=== PATIENT | male | born 1955 | race Caucasian/White ===

== ENCOUNTER 2023-07-04 07:11 | Emergency (ER) | payer MEDICARE, SELFPAY ==
[2023-07-04] VITALS (20 sets, daily range): BP systolic 95–158; BP diastolic 67–125; PULSE 64–79; RESP 11–22; TEMP 36.6; O2SAT 92–100
--- NOTE | ~2023-07-04 | XR_ITS ---
EXAMINATION: XR shoulder LT 1V DATE: 07/04/2023 08:55 INDICATION: Postreduction left shoulder dislocation TECHNIQUE: Frontal and transscapular Y views of the left shoulder were obtained. COMPARISON: None FINDINGS: Successful reduction of the previously dislocated left glenohumeral joint which is now in normal alig nment. No fracture.Moderate acromioclavicular osteoarthritis. Left lung is clear with no pleural eff usion or pneumothorax. Soft tissues are unremarkable. IMPRESSION: Successful reduction of the previously dislocated left glenohumeral joint which is now in normal alig nment. No fracture. Reviewed, dictated and finalized at location A. IMPRESSION: Successful reduction of the previously dislocated left glenohumeral joint which is now in normal alignment. No fracture.
--- NOTE | ~2023-07-04 | XR_ITS ---
Left Shoulder Technique: Single AP view of obtained. Clinical History: Dislocation Findings: There is dislocation of the humeral head, probably anteroinferior, less likely direct infer ior. There is a probable Hill-Sachs impaction deformity of the superior femoral head. No definite gle noid fracture seen. Soft tissues are unremarkable. Impression: Dislocation of the humeral head, likely anteroinferior, less likely inferior. Probable Hill-Sachs impaction fracture of the superior humeral head. Reviewed, dictated and finalized at location . Impression: Dislocation of the humeral head, likely anteroinferior, less likely inferior. Probable Hill-Sachs impaction fracture of the superior humeral head.
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
[2023-07-04] MEDS: fentaNYL CITRATE INJ (*CRX) 100 MCG/2 ML VIAL 25 MCG IV PUSH ×2 (07:28→07:39)
[2023-07-04] MEDS: ETOMIDATE 20 MG/10 ML AMPUL 10 MG IV PUSH (07:51)
--- NOTE | 2023-07-04 08:11 | PC.NURSE ---
Positive PMS post procedure. Patient awake and talking. VSS.
--- NOTE | 2023-07-04 09:43 | PC.NURSE ---
patient ambulatory with steady gait, at bedside. Shoulder immobilizer adjusted for comfort.
== END 2023-07-04 09:40 | disposition home or self-care (01) ==
PROVIDERS: Emergency Provider Internal Medicine Critical Care Medicine; PCP Internal Medicine
DX: S43.005A Unspecified dislocation of left shoulder joint, initial encounter (principal); J44.9 Chronic obstructive pulmonary disease, unspecified; Z79.899 Other long term (current) drug therapy; W22.8XXA Striking against or struck by other objects, initial encounter; Y92.009 Unspecified place in unspecified non-institutional (private) residence as the place of occurrence of the external cause
CPT/HCPCS: 23650; 73020; 73030; 96374; 99285; J3010; L3670

== ENCOUNTER → 2023-09-06 07:59 | Outpatient (CLI) | payer MEDICARE, SELFPAY ==
--- NOTE | ~2023-09-06 | MR_ITS ---
EXAMINATION: MR shoulder LT wo con DATE: 09/06/2023 09:26 INDICATION: Anterior shoulder dislocation TECHNIQUE: Magnetic resonance imaging (MRI) of the left shoulder was performed without intravenous co ntrast. Sequences included axial PD-weighted FS FSE, coronal oblique PD-weighted FS FSE, coronal obli que T2-weighted FS FSE, sagittal PD-weighted FS FSE, and sagittal T1-weighted SE. COMPARISON: None. FINDINGS: Coracoacromial arch: The acromion undersurface is curved in morphology (type II). The coracoacromial ligament is normal. M ild acromioclavicular osteoarthritis. Rotator cuff: Large full-thickness tear involving the entire greater tuberosity insertion of the supraspinatus and infraspinatus tendons and the entire lesser tuberosity insertion of the subscapularis tendon. This is likely chronic given the medial retraction and moderate to severe associated fatty atrophy of the as sociated muscle bellies. The tear margin is retracted up to 7-8 cm medial from the greater tuberosity footplate, extending across the medial margin of the coracoid process in the neck of the more umbrella tipper machine ior glenoid. The teres minor tendon is normal. Biceps tendon, glenoid labrum and glenohumeral cartilage: Complete tear of the long head biceps tendon with the attenuated distal tear margin retracted to the level of the intertubercular groove. Small region of degenerative tearing at the 12:00 position of th e glenoid labrum. The remainder of the labrum appears relatively preserved. Glenohumeral cartilage th ere are some labral preserved. Fluid: Small glenohumeral joint effusion which communicates with the subacromial/subdeltoid bursa throughout the full-thickness rotator cuff tear. No loose osteochondral bodies. Bones: There is cephalad subluxation of the humeral head with respect to the glenoid resulting from a full-t hickness rotator cuff tear with secondary narrowing of the subacromial space. Moderate cystic change at the superior facet of the greater tuberosity likely related to chronic rotator cuff disease. IMPRESSION: 1. Massive full-thickness rotator cuff tear along the humeral insertion of the subscapularis, suprasp inatus and infraspinatus tendons with prominent medial retraction of the tear margin and moderate to severe secondary fatty atrophy of the muscle belly suggesting this is chronic. 2. Degenerative tearing at the superior glenoid labrum with avulsion and distal retraction of the shay g head biceps tendon. 3. Mild acromioclavicular osteoarthritis. Reviewed, dictated and finalized at location A. IMPRESSION: 1. Massive full-thickness rotator cuff tear along the humeral insertion of the subscapularis, supraspinatus and infraspinatus tendons with prominent medial re traction of the tear margin and moderate to severe secondary fatty atrophy of t he muscle belly suggesting this is chronic. 2. Degenerative tearing at the superior glenoid labrum with avulsion and distal retraction of the long head biceps tendon. 3. Mild acromioclavicular osteoarthritis.
== END ==
PROVIDERS: PCP Internal Medicine
DX: S43.015A Anterior dislocation of left humerus, initial encounter (principal); S46.012A Strain of muscle(s) and tendon(s) of the rotator cuff of left shoulder, initial encounter; X58.XXXA Exposure to other specified factors, initial encounter; M19.012 Primary osteoarthritis, left shoulder
CPT/HCPCS: 73221

== ENCOUNTER 2024-05-20 08:00 | Outpatient (RCR) | payer MEDICARE, SELFPAY ==
--- NOTE | 2024-04-24 14:32 | OTOPEVAL1 ---
Assessment and note entered by Neftali Hunter, DEBBIER/Ronen, CHT Evaluation Information Assessment Status Evaluation Diagnosis Left axillary nerve palsy Subjective Information -Injury 07/04/23 -Surgery 01/23/24 -Patient is s/p decompression of the left quadrangular space with tenotomy of the long head of the triceps tendon, decompression and neurolysis of the left axially nerve, and nerve transfer using the medial triceps nerve end-to- side to the axillary nerve. -Patient reports continued difficulty raising the left shoulder. States no pain. Reports that recently it feels like his hand is cramping and this typically occurs at night. -Has HEP from [facility], but has been having a hard time completing this on his own he reports -Unable to do any sort of lifting away from his body with the left arm, limited with use of tools, and difficulties with heavy household tasks Reported Pain Level Pain Score 0: Self Report Assessment OT Clinical Summary Patient referred to OT with dx of left axillary nerve palsy s/p decompression of the quadrangular space and axillary nerve transfer using the medial triceps nerve. He presents with limited shoulder flexion, abduction, and external rotation strength . Issued HEP and he completes with constant cues to isolate the deltoid as he tends to compensate with larger, stronger muscles. Continued skilled OT indicated to maximize functional strength, body mechanics, and functional use of the left UE. Plan of Care Interventions Therapeutic Exercise,Manual Therapy,Neuro Re- education,Therapeutic Activities OT Services Indicated Yes Treatment Frequency and 1x/week for 5 visits Duration These treatments will address the objective and functional deficits as defined above. The patient will be advanced safely and appropriately in order for the patient to progress towards his/her prior level of function. Additional exercises will be introduced and as well as a comprehensive home exercise program upon discharge, if needed, ?to ensure carryover of functional gains achieved in the clinic. This treatment plan has been reviewed and agreement upon by the patient.
--- NOTE | 2024-04-24 14:32 | OPREHPOC ---
Outpatient Therapy Plan of Care This is a Multidisciplinary Plan of Care that may contain components documented by all disciplines (PT, OT, and ST.) OT Problem 1 OT Problem #1 Knowledge Deficit OT Goal 1 Goal 1. Patient to be independent with instructed materials. Target Visit 5 OT Problem 2 OT Problem #2 Impaired Strength OT Goal 1 Goal Increase functional strength of the left shoulder as demonstrated by improving functional ROM against gravity to: 1. Left shoulder flexion to 50* 2. Left shoulder abduction to 50* Increase functional strength of the left hand: 1. construction engineer strength to 80 lbs. Target Visit 5
--- NOTE | 2024-05-13 08:04 | PCOTNOTE ---
Patient called & cancelled scheduled appointment this date due to illness.
--- NOTE | 2024-05-20 08:29 | OTOPPROG ---
Assessment and note entered by Neftali Hunter, DOMINIC/Ronen, [place] OT Progress Update 05/20/24 Assessment Status Progress Diagnosis Left axillary nerve palsy Subjective Information Patient has been participating in OT x4 weeks. He reports he feels like his shoulder motion is better and he is feeling stronger. States he is feeling like his arm is getting more functional with household tasks, working out in the garden, etc. Reporting no pain. States his hand hasn't been cramping lately. Shoulder flexion and abduction remained limited at 30 degrees. No change. Shoulder extension remained WNL at 60 degrees. Shoulder ER continues to be very limited and weak, 2/5 Shoulder IR is WNL. Assessment OT Clinical Summary Patient referred to OT with dx of left axillary nerve palsy s/p decompression of the quadrangular space and axillary nerve transfer using the medial triceps nerve. He has been very motivated and compliant with therapy. Unfortunately the shoulder ROM and strength continues to measure the same as the initial evaluation. He continues to compensate for lack of deltoid strength. Plan to have patient continue to work on his HEP x1 month and follow up for a re-assessment to hopefully progress his HEP. Plan of Care Interventions Therapeutic Exercise,Manual Therapy,Neuro Re- education,Therapeutic Activities OT Services Indicated Yes Treatment Frequency and Follow up in 1 month Duration These treatments will address the objective and functional deficits as defined above. The patient will be advanced safely and appropriately in order for the patient to progress towards his/her prior level of function. Additional exercises will be introduced and as well as a comprehensive home exercise program upon discharge, if needed, ?to ensure carryover of functional gains achieved in the clinic. This treatment plan has been reviewed and agreement upon by the patient.
--- NOTE | 2024-06-17 08:18 | PCOTNOTE ---
Patient called & cancelled scheduled appointment this date due to illness.
--- NOTE | 2024-07-08 11:33 | OTOPDC ---
Assessment and note entered by Neftali Hunter, OTR/Ronen, CHT OT Discharge Notification 07/08/24 OT Clinical Summary Patient referred to OT with dx of left axillary nerve palsy s/p decompression of the quadrangular space and axillary nerve transfer using the medial triceps nerve. He was seen for 4 OT sessions. He called to cancel his re-evaluation and did not reschedule. We have been unable to get a hold of him. Discharging OT at this time. Please refer to OT note, dated 05/20/24, for most recent summary and progress update. Thank you for this referral.
== END 2024-07-08 14:32 | disposition home or self-care (01) ==
LOC: ANHOT 08:00
PROVIDERS: PCP Internal Medicine
DX: G54.0 Brachial plexus disorders (principal)
CPT/HCPCS: 97110; 97140; 97166

== ENCOUNTER 2024-09-08 08:00 | Outpatient (RCR) | payer MEDICARE, SELFPAY ==
--- NOTE | 2024-08-04 08:52 | OTOPEVAL1 ---
Assessment and note entered by Neftali Hunter, DOMINIC/Ronen, CHT Evaluation Information Assessment Status Evaluation Diagnosis Left axillary nerve palsy Subjective Information -Injury 07/04/23 -Surgery 01/23/24 -Patient is s/p decompression of the left quadrangular space with tenotomy of the long head of the triceps tendon, decompression and neurolysis of the left axially nerve, and nerve transfer using the medial triceps nerve end-to- side to the axillary nerve. -Patient reports continued difficulty raising the left shoulder. States no pain. -Has been compliant with HEP: Pulleys, AAROM with cane, and shoulder ROM prone off edge of bed -Unable to do any sort of lifting away from his body with the left arm, limited with use of tools, and difficulties with household tasks Reported Pain Level Pain Score 0: Self Report Assessment OT Clinical Summary Patient referred to OT with a decline in left UE use following a shoulder dislocation injury with axially nerve palsy. He underwent a nerve transfer procedure - medial triceps nerve to axillary ~6 months ago. He completed a month of OT at this clinic from April-May of this year. Measurements today show progress from this summer. He has been compliant with his HEP. Added some new exercises to his HEP and he demonstrates excellent understanding. Patient to continue his HEP and follow up in a month for reassessment of his progress and potential HEP progression. Plan of Care Interventions Therapeutic Exercise,Manual Therapy,Therapeutic Activities OT Services Indicated Yes Treatment Frequency and Follow up in 1 month. Duration These treatments will address the objective and functional deficits as defined above. The patient will be advanced safely and appropriately in order for the patient to progress towards his/her prior level of function. Additional exercises will be introduced and as well as a comprehensive home exercise program upon discharge, if needed, ?to ensure carryover of functional gains achieved in the clinic. This treatment plan has been reviewed and agreement upon by the patient.
--- NOTE | 2024-08-04 08:52 | OPREHPOC ---
Outpatient Therapy Plan of Care This is a Multidisciplinary Plan of Care that may contain components documented by all disciplines (PT, OT, and ST.) OT Problem 1 OT Problem #1 Knowledge Deficit OT Goal 1 Goal / Goal Update Patient to be independent with instructed materials. Target Visit 2 OT Problem 2 OT Problem #2 Impaired Strength OT Goal 1 Goal / Goal Update Improve functional strength of the left shoulder as demonstrated by: - improving shoulder flexion in a standing position from 40 to 90 degrees to be able to reach counter-height objects during ADLs - improving shoulder abduction in a standing position from 40 to 90 degrees to be able to complete lateral reaching during ADLs and home projects - improving shoulder external rotation strength to 4/5 to improve functional self care tasks such as grooming, washing hair, etc. Target Visit 2
--- NOTE | 2024-09-08 09:24 | OTOPPROG ---
Assessment and note entered by Neftali Hunter, DOMINIC/Ronen, CHT OT Progress Update 09/08/24 Diagnosis Left axillary nerve palsy Subjective Information -Injury 07/04/23 -Surgery 01/23/24 -Patient is s/p decompression of the left quadrangular space with tenotomy of the long head of the triceps tendon, decompression and neurolysis of the left axially nerve, and nerve transfer using the medial triceps nerve end-to- side to the axillary nerve. -Patient reports continued difficulty raising the left shoulder, but that it is feeling better. -No pain. -Has been compliant with HEP: shoulder motion in supine and prone, triceps strengthening, pulleys for flexibility -During ADLs, he continues to be unable to do any sort of lifting away from his body with the left arm, difficulties with household tasks Since last assessment (08/04/24): - shoulder flexion in standing improved from 40 to 50 degrees - shoulder abduction in standing remained unchanged at 40 degrees - shoulder abduction in supine remained unchanged at 80 degrees - shoulder extension in standing remained WFL at 60 degrees HEP was progressed today: - prone shoulder flexion, extension, and abduction with a 1 lb. free weight - shoulder flexion and abduction isometrics in doorway, able to isolate the deltoid well without upper trap compensation - sideling external rotation with 1 lb. free weight Assessment OT Clinical Summary Patient referred to OT with a decline in left UE use following a shoulder dislocation injury with axially nerve palsy. He underwent a nerve transfer procedure - medial triceps nerve to axillary ~7 months ago. Patient has made progress with improved ROM and improved strength as demonstrated by being able to progress his HEP in all planes today. He was also able to complete isometric shoulder flexion and abduction today without heavily compensating with the upper traps. Reviewed all exercises today, provided feedback/ cues on form, and patient demonstrates good understanding. Patient to continue his HEP and follow up in a month for reassessment of his progress and potential HEP progression. Plan of Care Interventions Therapeutic Exercise,Manual Therapy,Therapeutic Activities OT Services Indicated Yes Treatment Frequency and Follow up in 1 month. Duration These treatments will address the objective and functional deficits as defined above. The patient will be advanced safely and appropriately in order for the patient to progress towards his/her prior level of function. Additional exercises will be introduced and as well as a comprehensive home exercise program upon discharge, if needed, ?to ensure carryover of functional gains achieved in the clinic. This treatment plan has been reviewed and agreement upon by the patient.
--- NOTE | 2024-09-08 09:25 | OPREHPOC ---
Outpatient Therapy Plan of Care This is a Multidisciplinary Plan of Care that may contain components documented by all disciplines (PT, OT, and ST.) OT Problem 1 OT Problem #1 Knowledge Deficit OT Goal 1 Goal / Goal Update Patient to be independent with instructed materials. ---OT POC UPDATE 09/08/24--- Met, continue as HEP is progressed Target Visit 3 OT Problem 2 OT Problem #2 Impaired Strength OT Goal 1 Goal / Goal Update Improve functional strength of the left shoulder as demonstrated by: - improving shoulder flexion in a standing position from 40 to 90 degrees to be able to reach counter-height objects during ADLs - improving shoulder abduction in a standing position from 40 to 90 degrees to be able to complete lateral reaching during ADLs and home projects - improving shoulder external rotation strength to 4/5 to improve functional self care tasks such as grooming, washing hair, etc. ---OT POC UPDATE 09/08/24--- - shoulder flexion improved from 40 to 50, continue - shoulder abduction demonstrates no change at this time, monitor goal - shoulder external rotation improved to 3+/5, upgraded HEP to reflect this progress Target Visit 3
== END 2024-11-02 23:59 | disposition home or self-care (01) ==
LOC: ANHOT 08:00
PROVIDERS: PCP Internal Medicine
DX: S44.32XA Injury of axillary nerve, left arm, initial encounter (principal)
CPT/HCPCS: 97110; 97112; 97165

== ENCOUNTER 2025-02-05 11:18 | Outpatient (CLI) | payer MEDICARE, SELFPAY ==
[2025-02-05 11:35] LABS: Basophils Absolute Auto 0.05 K/mm3 (0.00-0.10); Basophils Percent Auto 0.8 % (0.0-1.0); Eosinophils Absolute Auto 0.26 K/mm3 (0.02-0.50); Eosinophils Percent Auto 4.3 % (1.0-6.0); Hematocrit 43.4 % (37.0-46.0); Immature Granulocyte Absolute 0.02 K/mm3 (0.00-0.00); Immature Granulocyte Percent A 0.3 % (0.0-0.0); Lymphocytes Absolute Auto 1.43 K/mm3 (1.10-4.50); Lymphocytes Percent Auto 23.5 % (18.0-42.0); Mean Corpuscular HGB Conc 32.3 g/dL (32-36); Mean Corpuscular Volume 99.1 fL (78.0-102.0); Mean Platelet Volume 8.7 fl (8.7-11.0); Monocytes Absolute Auto 0.41 K/mm3 (0.10-0.90); Monocytes Percent Auto 6.7 % (2.0-11.0); Neutrophils Absolute Auto 3.92 K/mm3 (1.70-7.20); Neutrophils Percent Auto 64.4 % (50.0-70.0); Platelet Count Result 298 K/mm3 (150-420); Red Blood Count 4.38 M/mm3 (4.70-6.10); Red Cell Distribution Width 13.3 % (11.6-14.4); White Blood Count 6.1 K/mm3 (4.8-10.8)
--- OUTSIDE RECORDS SUMMARY | 2025-02-05 12:12 | XMS_ITS | Encounter Summary ---
Author Organization [facility] Address [address] [place] [address] Phone Care Team Providers Care [employer] Guidance Counselor Name Role Phone Hunter Perez MD Primary Care Provider [phone] Kendra Garvin MD Unavailable Jackie QUINONES MD, Han Regan. Unavailable [phone] Ralf Espinoza MD Unavailable [phone] Reason for Visit * Reason Comments Medication Refill Encounter Details Date Type Department Care Team (Late st Contact Info) Description 04/25/2024 Refill [facility] - Family [facility] [address] [place] [id number] Hunter Perez MD [address] [place] [address] Medication Refill Social History Tobacco Use Types Packs/Day Years Used Date Smoking Tobacco: Former Cigarettes 1 52.6 0 06/22/1970 - 01/10/2023 Pipe Smokeless Tobacco: Never Alcohol Use Standard Drinks/Week Comments Yes 0 (1 standard drink = 0.6 oz pur e alcohol) social drinker PHQ-2 Answer Date Recorded Total Score - Questions 1-9 0 08/06 Education Answer Date Recorded What is the highest level of school you have completed or the highest degree you have received? 12th grade 07/22/2023 Sex and Gender Information Value Date Recorded Sex Assigned at Not on file Legal Sex Male 12:38 AM CDT Gender Identity Not on file Sexual Orientation Not on file documented as of this encounter Miscellaneous Notes * Telephone Encounter - Sonu Camara RN - 04/25/2024 8:28 AM CDT Refill requested too soon. documented in this encounter Plan of Treatment Upcoming Encounters Date Type Department Care Team (Late st Contact Info) Description 03/10/2025 8:00 AM CDT Office Visit [facility] - [place] [address] [place] [id number] Hunter Perez MD [address] [place] [address] documented as of this encounter Visit Diagnoses Not on filedocumented in this encounter Additional Health Concerns Assessment Noted Time PHQ-9 Depression Total Score: 0 08/31/20 23 11:16 AM CDT documented as of this encounter Care Teams [employer] Guid[employer] Counsel[employer] Relationship Specialty Start Date End Date Hunter Perez MD [address] [place] [address] PCP - General Internal Medicine 07/27/15 Kendra Garvin MD [address] [place] [address] Consulting Physician Pain Medicine-Pain Management 06/22/16 [place] [address] [address] Consulting Physician Neurology 06/22/16 Ralf Espinoza MD [address] [id number] Consulting Physician Rheumatology 06/22/16 documented as of this encounter
--- OUTSIDE RECORDS SUMMARY | 2025-02-05 12:12 | XMS_ITS | Encounter Summary ---
Author Organization [facility] Address [address] [place] [address] Phone Care Team Providers Care Occup Therapist Name Role Phone Hunter Perez MD Primary Care Provider [phone] Kendra Garvin MD Unavailable Jackie QUINONES MD, Han Regan. Unavailable Ralf Espinoza MD Unavailable [phone] Reason for Visit * Reason Comments Medication Refill Encounter Details Date Type Department Care Team (Late st Contact Info) Description 05/23/2022 Refill [facility] - Primary Care - [place] [address] [place] [address] Hunter Perez MD [address] [place], [place] [id number] Medication Refill Social History Tobacco Use Types Packs/Day Years Used Date Smoking Tobacco: Some Days Cigarettes 1 54.6 Started: 06/22/1970 Pipe Smokeless Tobacco: Never Alcohol Use Standard Drinks/Week Comments Yes 0 (1 standard drink = 0.6 oz pur e alcohol) social drinker PHQ-2 Answer Date Recorded Total Score - Questions 1-9 0 07/07 Sex and Gender Information Value Date Recorded Sex Assigned at Not on file Legal Sex Male 12:38 AM CDT Gender Identity Not on file Sexual Orientation Not on file documented as of this encounter Miscellaneous Notes * Telephone Encounter - Zara Campuzano RN - 05/23/2022 10:11 AM CDT Medication approved and signed per standing order protocol. documented in this encounter Plan of Treatment Upcoming Encounters Date Type Department Care Team (Late st Contact Info) Description 03/10/2025 8:00 AM CDT Office Visit [facility] - Primary Care - [place] [address] [place] [address] Hunter Perez MD [address] [place] [address] documented as of this encounter Visit Diagnoses Not on filedocumented in this encounter Additional Health Concerns Assessment Noted Time PHQ-9 Depression Total Score: 0 07/28/20 21 8:00 AM CDT documented as of this encounter Care Teams Occup Therapist Relationship Specialty Start Date End Date Hunter Perez MD [address] [place] [address] PCP - General Internal Medicine 07/27/15 Kendra Garvin MD [address] [place] [address] Consulting Physician Pain Medicine-Pain Management 06/22/16 [place] [address] [address] Consulting Physician Neurology 06/22/16 [place] [address] [place] [address] Consulting Physician Rheumatology 06/22/16 documented as of this encounter
--- OUTSIDE RECORDS SUMMARY | 2025-02-05 12:12 | XMS_ITS | Continuity of Care Document ---
Author Organization [facility] Address [address] [place] [address] [place] [address] Phone Care Team Providers Care Slubber Operator Name Role Phone Rogerio Hinojosa DO Unavailable Unavailable Advance Directives Directive Yes / No Effective Date File Name No Information Encounters Encounter Description Practice Location Reason(s) For Visit Diagnoses Date Provider Providers Copied on Encounter [facility], [address], [place], [place], [id number], [place] tel:[phone] [facility] No Information Micaela Wright. [address] [place], [address], [place]. tel:[phone] Family History Family Member Type Diagnosis Age At Onset No Information Payers Payer name Insurance type Covered alliance party ID Authoriza tion(s) No Information Social History Type Description Quantity Date Captured Comments Sex Male Smoking Status No Information Chief Complaint And Reason For Visit No Information Reason For Referral Reason For Referral No Information History Of Present Illness Encounter Date Complaint History Of Prese nt Illness No Information Functional Status Date Functional Assessmen t No Information Instructions Date Instruction Additional Infor mation No Information Assessments Type Assessment Date No Information Patient Care Teams Name Effective Dates (start - stop) Status Members No Information
--- OUTSIDE RECORDS SUMMARY | 2025-02-05 12:12 | XMS_ITS | Clinical Summary ---
Author Organization [facility] Address [address] [place] [address] Care Team Providers Care Ship'S Officer Name Role Phone Hunter Perez MD Primary Care Provider + Bon Hannah Unavailable Allergies No known active allergies Medications methadone (DOLOPHINE) 10 mg tablet Take 0.5 tablets by mouth every 8 (eight) hours as needed for pain 5 Active morphine ER (MS CONTIN) 30 mg 12 hr tabletIndication s:severe chronic pain requiring long-term opioid treatment Take 1 tablet (30 mg total) by mouth 2 (two) times a day Active omeprazole (PriLOSEC) 20 mg capsuleIndicatio ns:Treatment of Non-Bleeding Gastric Disorder Take 1 capsule (20 mg total) by mouth every morning 3 Active potassium gluconate 2.5 mEq tabletIndication s:hypokalemia prevention Take 2.5 mEq by mouth every morning Active atorvastatin (LIPITOR) 10 mg tabletIndication s:hyperlipidemia Take 1 tablet (10 mg total) by mouth nightly 4 Active albuterol HFA (ProAir HFA) 90 mcg/actuation inhalerIndicatio ns:Chronic Obstructive Pulmonary Disease Inhale 2 puffs every 4 (four) hours as needed for shortness of breath 9 Active budesonide-formo teroL (Symbicort) 160-4.5 mcg/actuation inhalerIndicatio ns:Bronchospasm Prevention with COPD Inhale 2 puffs 2 (two) times a day 9 Active buPROPion SR (WELLBUTRIN SR) 150 mg 12 hr tabletIndication s:unknown Take 1 tablet (150 mg total) by mouth 2 (two) times a day 9 Active gabapentin (NEURONTIN) 300 mg capsuleIndicatio ns:Neuropathic Pain Take 2 capsules (600 mg total) by mouth 2 (two) times a day 5 Active melatonin 10 mg tabletIndication s:sleep Take 1 tablet (10 mg total) by mouth nightly Active predniSONE (DELTASONE) 5 mg tabletIndication s:Anti-inflammat ory Take 1 tablet (5 mg) by mouth daily as needed 4 Active cyanocobalamin (Vitamin B-12) 1,000 mcg tabletIndication s:Prevention of Vitamin B12 Deficiency Take 1 tablet (1,000 mcg total) by mouth every morning Active multivitamin tabletIndication s:Vitamin Deficiency Prevention Take 1 tablet by mouth every morning Active ginkgo/choline bitartrate (BRAINSTRONG MEMORY SUPPORT ORAL)Indications :supplement Take 1 tablet by mouth every morning Active cyclobenzaprine (FLEXERIL) 10 mg tabletIndication s:Muscle Spasm Take 1 tablet (10 mg total) by mouth every 8 (eight) hours as needed for muscle spasms 30 tablet 4 Active Additional Information Patient not taking.Reported on 02/25/2024 Active Problems Problem Noted Date Diagnosed Date Shoulder weakness 01/07/2024 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 Surgical History Surgery Date Site/Laterality Comments SHOULDER SURGERY 11/05/1970 - 11/04/1971 Right COLONOSCOPY 11/05/2016 - 11/04/2017 ESOPHAGOGASTRODUODENOSCOPY 02/04/2019 Medical History Medical History Date Comments HLD (hyperlipidemia) Seasonal allergies COPD (chronic obstructive pulmonary disease) (HC C) Colitis Arthritis Sleep apnea Family History Medical History Relation Name Comments Heart attack Brother Heart attack Father Stroke Mother Anesthesia problems Neg Hx Malig Hyperthermia Neg Hx Pseudochol deficiency Neg Hx Relation Name Status Comments Brother Father Mother Social History Tobacco Use Types Packs/Day Years Used Date Smoking Tobacco: Former Cigarettes 1 15 0 01/11/2008 - 01/10/2023 Smokeless Tobacco: Never Tobacco Cessation:Counseling Given: Not Answered AUDIT-C Answer Date Recorded Q1: How often do you have a drink containing alc ohol? 2-3 times a week 01/23/2024 Q2: How many drinks containi ng alcohol do you have on a typical day when you are drinking? 5 or 6 01/23/2024 Q3: How often do you have si x or more drinks on one occasion? Never 01/23/2024 Personal Safety Answer Date Recorded Have you ever been in or are you currently in a harmful physical or emotional relationship or is someone making you feel afraid or unsafe? 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 Gender Identity Not on file Sexual Orientation Not on file Obstetrics History Last Filed Vital Signs Vital Sign Reading Time Taken Comments Blood Pressure 107/64 01/24/2024 7:02 AM CDT Pulse 67 01/24/2024 7:02 AM CDT Temperature 36.6 C (97.9 F) 01/24/2024 7:02 AM CDT Respiratory Rate 16 01/24/2024 7:02 AM CDT Oxygen Saturation 97% 01/24/2024 7:50 AM CDT Inhaled Oxygen Concentration - - Weight 77.1 kg (170 lb) 01/23/2024 3:25 PM CDT Height 170.2 cm (5' 7.01 ) 01/23/2024 3:25 PM CD T Body Mass Index 26.62 01/23/2024 3:25 PM CDT Plan of Treatment Health Maintenance Due Date Last Done Comments Colon Cancer Screening-Colonoscopy 1955 Depression Screening 1955 Hepatitis C Screening 1955 Prostate Cancer Screening-PSA 1955 Hepatitis B Screening 1973 Zoster Vaccine (1 of 2) 2005 Abdominal Aortic Aneurysm (A AA) Screen 2020 01/31/2019, 02/14/2017 Well Visit 65+ 2020 Covid-19 Vaccine (2023-2 5 season) 2024 05/24/2022, 10/06/2021, 01/26/2021, Additional history exists Influenza Vaccine (#1) 2024 3, 08/07/2022, 07/28/2021, Additional history exists Fall Risk Assessment 01/23/2025 01/24/2024 DTaP/Tdap/Td Vaccine (3 - Td or Tdap) 06/22/2026 06/22/2016, 11/05/2005 Pneumococcal vaccine 65+ Completed 08/07/2022, 12/07 Insurance [employer] MEDICARE GOLD A[employer] MEDICARE GOLD Advance Directives For more information, please contact: [phone] * Full Code (Latest Code Status on File) Date Activated Date Inactivated Comments 01/23/2024 1:46 PM 01/24/2024 4:35 PM Care Teams Ship'S Officer Relationship Specialty Start Date End Date Hunter Perez MD PCP - General Internal Medicine 02/12/20 Bon Hannah PA [address] [facility] [facility] [address] [place] [address] Referring Physician Orthopedic Surgery 06/27/24
--- OUTSIDE RECORDS SUMMARY | 2025-02-05 12:12 | XMS_ITS | Encounter Summary ---
Author Organization [facility] Address [address] [facility] [place] [address] Phone Care Team Providers Care Accounting Specialist Name Role Phone Hunter Perez MD Primary Care Provider [phone] Kendra Garvin MD Unavailable [phone] Jackie QUINONES MD, Robert. Unavailable Ralf Espinoza MD Unavailable Reason for Visit * Reason Comments Medication Refill Encounter Details Date Type Department Care Team (Late st Contact Info) Description 03/28/2021 Refill [facility] [address] [place] [address] Hunter Perez MD [address] [place] [address] Medication Refill Social History Tobacco Use Types Packs/Day Years Used Date Smoking Tobacco: Some Days Cigarettes 1 54.6 Started: 06/22/1970 Pipe Smokeless Tobacco: Never Alcohol Use Standard Drinks/Week Comments Yes 0 (1 standard drink = 0.6 oz pur e alcohol) social drinker PHQ-2 Answer Date Recorded PHQ-2 Score 12 07/09/2019 Sex and Gender Information Value Date Recorded Sex Assigned at Not on file Legal Sex Male 12:38 AM CDT Gender Identity Not on file Sexual Orientation Not on file documented as of this encounter Plan of Treatment Upcoming Encounters Date Type Department Care Team (Late st Contact Info) Description 03/10/2025 8:00 AM CDT Office Visit [facility] - Primary Care - [place] [address] [address] Hunter Perez MD [address] [place] [address] documented as of this encounter Visit Diagnoses Not on filedocumented in this encounter Additional Health Concerns Assessment Noted Time PHQ-9 Depression Total Score: 12 018 8:00 AM CDT documented as of this encounter Care Teams Accounting Specialist Relationship Specialty Start Date End Date Hunter Perez MD [address] [place] [address] PCP - General Internal Medicine 07/27/15 Kendra Garvin MD [address] [place] [address] Consulting Physician Pain Medicine-Pain Management 06/22/16 [place] [address] [address] Consulting Physician Neurology 06/22/16 Ralf Espinoza MD [address] [address] Consulting Physician Rheumatology 06/22/16 documented as of this encounter
--- OUTSIDE RECORDS SUMMARY | 2025-02-05 12:12 | XMS_ITS | Referral Summary ---
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 [id number] [place] [id number] [facility] MEDICARE GOLD Advance Directives For more information, please contact: [phone] * Full Code (Latest Code Status on File) Date Activated Date Inactivated Comments 01/23/2024 1:46 PM 01/24/2024 4:35 PM Care Teams Upholstery Tech Relationship Specialty Start Date End Date Hunter Perez MD PCP - General Internal Medicine 02/12/20 Bon Hannah PA [address] [facility] [address] [address] Referring Physician Orthopedic Surgery 06/27/24
--- OUTSIDE RECORDS SUMMARY | 2025-02-05 12:12 | XMS_ITS | Encounter Summary ---
Author Organization [facility] Address [address] [place] [address] Phone Care Team Providers Care Demand Inspector Name Role Phone Hunter Perez MD Primary Care Provider [phone] Kendra Garvin MD Unavailable [phone] Jackie QUINONES MD, Han Regan. Unavailable Ralf Espinoza MD Unavailable [phone] Reason for Visit * Reason Comments Medication Refill Encounter Details Date Type Department Care Team (Late st Contact Info) Description 10/26/[address] [facility] - Primary Care - [place] [address] [place] [address] Hunter Perez MD [address] [place], [place] [id number] Medication Refill Social History Tobacco Use Types [...] Telephone Encounter - Zara Campuzano RN - 10/26/2021 10:36 AM PHARMACOMETRICIAN Medication approved and signed per standing order protocol. MACOMETRICIAN documented in this encounter Plan of Treatment Upcoming Encounters Date Type Department Care Team (Late st Contact Info) Description 03/10/2025 8:00 AM CDT [facility] - [place] [address] [place] [address] Hunter Perez MD [address] [place] [address] documented as of this encounter Visit Diagnoses Not on filedocumented in this encounter Additional Health Concerns Assessment Noted Time PHQ-9 Depression Total Score: 0 07/28/20 21 8:00 AM CDT documented as of this encounter Care Teams Demand Inspector Relationship Specialty Start Date End Date Hunter Perez MD [address] [place] [address] PCP - General Internal Medicine 07/27/15 Kendra Garvin MD [address] [place] [address] Consulting Physician Pain Medicine-Pain Management 06/22/16 [place] [address] [address] Consulting Physician Neurology 06/22/16 Ralf Espinoza MD [address] [address] Consulting Physician Rheumatology 06/22/16 documented as of this encounter
--- OUTSIDE RECORDS SUMMARY | 2025-02-05 12:12 | XMS_ITS | Encounter Summary ---
Author Organization [facility] Address [address] [facility] [place] [address] Phone Care Team Providers Care Heavy Duty Custodian Name Role Phone Hunter Perez MD Primary Care Provider [phone] Kendra Garvin MD Unavailable Jackie QUINONES MD, Robert. Unavailable Ralf Espinoza MD Unavailable [phone] Reason for Visit * Reason Comments Medication Refill Encounter Details Date Type Department Care Team (Late st Contact Info) Description 03/26/2021 Refill [facility] [address] [place] [address] Hunter Perez MD [address] [place] [address] Medication Refill Social History Tobacco Use Types [...] - [place] [address] [place] [address] Hunter Perez MD [address] [place] [address] documented as of this encounter Visit Diagnoses Not on filedocumented in this encounter Additional Health Concerns Assessment Noted Time PHQ-9 Depression Total Score: 12 018 8:00 AM CDT documented as of this encounter Care Teams Heavy Duty Custodian Relationship Specialty Start Date End Date Hunter Perez MD [address] [place] [address] PCP - General Internal Medicine 07/27/15 Kendra Garvin MD [address] [place] [address] Consulting Physician Pain Medicine-Pain Management 06/22/16 [place] [address] [address] Consulting Physician Neurology 06/22/16 Ralf Espinoza MD [address] [address] Consulting Physician Rheumatology 06/22/16 documented as of this encounter
--- OUTSIDE RECORDS SUMMARY | 2025-02-05 12:12 | XMS_ITS | Clinical Summary ---
Author Organization [facility] Address [address] [address] Phone Care Team Providers Care Cooling Machine Operator Name Role Phone Hunter Perez MD Primary Care Provider [phone] Kendra Garvin MD Unavailable [phone] Jackie QUINONES MD, Han Regan. Unavailable [phone] Ralf Espinoza MD Unavailable [phone] Allergies No known active allergies Medications gabapentin (NEURONTIN) 300 MG Capsule Take 600 mg by mouth 2 times daily. 6 Active acetaminophen (TYLENOL) 500 MG Tablet Take 1,000 mg by mouth 2 times daily as needed for Pain. Active Melatonin 10 MG Tablet Take by mouth. Activ e PROAIR HFA 108 (90 Base) MCG/ACT Aerosol SolutionIndicati ons:Pulmonary emphysema, unspecified emphysema type (HCC) USE 2 INHALATIONS FOUR TIMES A DAY NEEDED FOR WHEEZING 18 g 1 9 Active SYMBICORT 160-4.5 MCG/ACT Aerosol USE 2 INHALATIONS TWICE A DAY 3 Inhaler 9 Active fluticasone (FLONASE) 50 MCG/ACT SuspensionIndica tions:Seasonal allergic rhinitis due to pollen INSTILL 1-2 SPRAYS INTO EACH NOSTRIL DAILY DIRECTED 1 Bottle 1 Active meloxicam (MOBIC) 7.5 MG Tablet TAKE 1 TABLET BY MOUTH EVERY DAY FOR ARTHRITIS FLARES 1 Active predniSONE (DELTASONE) 5 MG Tablet TAKE 1-3 TABLETS BY MOUTH DAILY ARTHRITIS CONTROL - USE LOWEST EFFECTIVE DOSE, STOP WHEN BETTER 2 Active omeprazole (PriLOSEC) 20 MG CAPSULE DELAYED RELEASE TAKE 1 CAPSULE BY MOUTH EVERY DAY 90 Capsule 3 4 Active morphine (MS CONTIN) 30 MG Tablet Controlled ReleaseIndicatio ns:Fibromyalgia Take 1 Tablet by mouth every 12 hours. 60 Tablet 4 Active methadone (DOLOPHINE) 5 MG Tablet Take 5 mg by mouth 3 times daily. 4 Active buPROPion (WELLBUTRIN) 150 MG XL tablet TAKE 1 TABLET (150 MG) BY MOUTH TWICE A DAY 4 Active multi-vitamins (Multi-Vitamin) Tablet Take 1 Tablet by mouth every morning. Active Potassium Gluconate (RA Potassium Gluconate) 595 (99 K) MG Tablet Take 2.5 mEq by mouth daily. Active Misc Natural Products (BRAINSTRONG MEMORY SUPPORT PO) Take 1 Tablet by mouth every morning. Active atorvastatin (LIPITOR) 10 MG Tablet TAKE 1 TABLET BY MOUTH EVERY DAY 90 Tablet 1 5 Active tamsulosin (FLOMAX) 0.4 MG CapsuleIndicatio ns:Benign prostatic hyperplasia with lower urinary tract symptoms, symptom details unspecified Take 1 Capsule by mouth every morning. 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 Chronic low back pain 02/12/2023 Seasonal allergic rhinitis due to pollen 021 Overview (01/20/2021): Spring Tobacco abuse 01/31/2019 GERD without esophagitis 01/31/2019 Mixed hyperlipidemia COPD (chronic obstructive pulmonary disease) Anxiety and depression Fibromyalgia BPH (benign prostatic hyperplasia) Resolved Problems Problem Noted Date Diagnosed Date Resolved Date Ischemic colitis 02/11/2019 06/18/2019 Pancolitis 01/31/2019 06/18/2019 Acute diarrhea 01/31/2019 06/18/2019 Encounters Date Type Department Care Team Description 12/03/2024 Telephone [facility] - Primary [facility] - [place] [address] [place] [address] Hunter Perez MD Medication Refill 11/21/[address] [facility] [place] [address] [place] [address] Hunter Perez MD Medication Refill from Last 3 Months Immunizations Immunization Administration Dates Next Due Covid-19, Mrna, Lnp-s, Pf, 3 0 Mcg/0.3 Ml Dose ([facility]) 01/02/2021 Influenza Vaccine greater than 3 yrs 10/01/2018, 11/05/2013 Influenza Vaccine, Quadrivalent, PF 1001/2022,07/28/2021,07/20/2020,09/13 Influenza, Quadrivalent, Adjuvanted 07/23/2023 Influenza, high-dose, trivalent, PF 08/12/2024 PNEUMONIA ADULT IM PPSV23 01/02/2017 PUR FLU 3+ YRS PRES FREE QUAD IM 01/02/2017,02/2015 PUR Td PRES FREE 7+ YRS IM 06/22/2016 Pneumococcal conjugate PCV20 , polysaccharide [id number] conjugate, adjuvant, PF 08/07/2022 TDAP Vaccine 11/05/2005 Zoster Vaccine Recombinant 08/12/2024 Family History Medical History Relation Name Comments Heart Attack Brother 1 Heart Disease Brother 2 5 STENTS Alzheimer's Disease Father Heart Attack Father Macular Degeneration Father Diabetes Mother Stroke Mother Relation Name Status Comments Brother 1 Brother 2 Alive Father Mother Alive Social History Tobacco Use Types Packs/Day Years Used Date Smoking Tobacco: Former Cigarettes 1 52.6 0 06/22/1970 - 01/10/2023 Pipe Smokeless Tobacco: Never Tobacco Cessation:Counseling Given: Not Answered Alcohol Use Standard Drinks/Week Comments Yes 0 (1 standard drink = 0.6 oz pur e alcohol) Social drinker PHQ-2 Answer Date Recorded Total Score - Questions 1-9 9 11/2023 Education Answer Date Recorded What is the [...] Sign Reading Time Taken Comments Blood Pressure 102/72 09/05/2024 8:43 AM CDT Pulse 66 09/05/2024 8:43 AM CDT Temperature 36.3 C (97.4 F) 09/05/2024 8:43 AM CDT Respiratory Rate 16 09/05/2024 8:43 AM CDT Oxygen Saturation 9% 09/05/2024 8:43 AM CDT Inhaled Oxygen Concentration - - Weight 78.2 kg (172 lb 6 oz) 09/05/2024 8:43 AM CDT Height 172.7 cm (5' 8 ) 09/05/2024 8:43 AM CDT Body Mass Index 26.21 09/05/2024 8:43 AM CDT Plan of Treatment Upcoming Encounters Date Type Department Care Team (Late st Contact Info) Description 03/10/2025 8:00 AM CDT Office Visit [facility] - Primary Care - [place] [address] [place] [phone] Hunter Perez MD [address] [place] [address] Health Maintenance Due Date Last Done Comments Cologuard 2005 Respiratory Syncytial Virus (RSV) Immunization (Adult) (1 - Risk 60-74 years 1-dose series) 2015 Immunochemical Fecal Occult Blood 02/02/2020 02/01/2019, 02/14/2017 Lung Cancer Screening 08/17/2022 08/17/2021 , 02/20/2019, 05/14/2017 Colonoscopy 02/05/2024 02/04/2019, 12/18/2016 Colorectal Cancer Screening 02/05/2024 Zoster Immunization (2 of 2) 10/07/2024 08/12/2024 SARS-COV-2 Immunization ( season) 2025 08/12/2024, 05/24/2022, 10/06/2021, Additional history exists Td Immunization Every 10 Years (Adults With 1 Tdap) 06/22/2026 06/22/2016, 11/05/2005 02/04/2019, 12/18/2016 AAA Screening Ultrasound Completed 01/31/2019 PSA Discussion Completed 02/11/2019 Pneumococcal Immunization (50+ years) Completed 08/07/2022, 01/02/2017 Pneumococcal Immunization Combined Discontinued 08/07/2022, 01/02/2017 Hepatitis C Virus (HCV) Screening Completed 08/31/2023 Influenza Immunization Completed , 07/23/2023, 08/07/2022, Additional history exists Hepatitis B Immunization Aged Out No longer eligible based on patient's age to complete this topic Meningococcal Immunization (ACWY) Aged Out No longer eligible based on patient's age to complete this topic Rotavirus Immunization Aged Out No lo nger eligible based on patient's age to complete this topic Procedures Procedure Name Priority Date/Time Associated Diagnosis Comments RHEUMATOLOGY CONSULT 12/01/2024 12:00 AM GROUP CHIEF OPERATOR HEPATITIS C ANTIBODY Routine 08/31/2023 11:48 AM CDT Encounter for hepatitis C screening test for low risk patient CT CHEST SCREENING WO Routine 08/17/2021 8:53 AM CDT Personal history of tobacco use, presenting hazards to health PSA FREE & TOTAL Routine 02/11/2019 10:2 9 AM CDT Urinary retention STOOL, OCCULT BLOOD, DIAGNOSTIC, VIA GUAIAC Routine 02/01/2019 1:00 PM CDT from Last 3 Months or Most Recently Relevant to Health Maintenance Results * RHEUMATOLOGY CONSULT (12/01/2024 12:00 AM GROUP CHIEF OPERATOR) 12/01/2024 us Provider Scan GENERIC SCAN ORDERS CONSULT Kylah ball Result SCAN * HEPATITIS C ANTIBODY (08/31/2023 11:48 AM CDT) hepatitis C antibody 0.12 <1 S/[facility] ARCH [id number] B 08/31/2023 10:22 PM CDT [facility] Comment: Signal/Cutoff ratio < 0.79 is Nondetected Signal/Cutoff ratio 0.80-0.99 is Grayzone Signal/Cutoff ratio > 0.99 is Detected Supplemental assays are recommended if signal/cutoff ratio is >/=1.00. Signal/cutoff ratio result >/= 5.00 is 97% predictive of positivity for recombinant immunoblot assay (RIBA) and will be reported to the [place] Department of Public Health as required. Blood Venipuncture / Unknown 08/31/2023 11:48 AM CDT 08/31/2023 11:48 AM CDT us Hunter Perez MD CHEMISTRY ORDERABLES Kylah ball Result [facility] [address] [place] [address], * CT CHEST SCREENING WO (08/17/2021 8:53 AM CDT) Anatomical Region Laterality Modality Chest N/A Computed Tomogra phy 08/17/2021 12:3 2 PM CDT Impressions 08/17/2021 12:34 PM CDT IMPRESSION: 1. Background of mild pulmonary emphysema, stable. 2. No new suspicious pulmonary nodularity. Scattered erika metric pulmonary nodules are stable. 3. Additional findings as above. Lung-RADS v1.1 category 2: Benign appearance or behavior. Recommendation: Continue annual screening low-dose chest CT in 12 months. Narrative 08/17/2021 12:34 PM CDT EXAM DESCRIPTION: CT CHEST SCREENING WO REASON FOR STUDY: Screening CT of the chest in a current smoker with a 48.5 pack year smoking history. Additional history: None. TECHNIQUE: Low dose CT scan of the chest was performed without intravenous contrast using helical scanning technique. The exam extends from the lung apices through the lung bases. Automatic exposure control was used as a dose optimization technique. NOTE: This study was performed for the specific purposes of lung cancer screening and is not an alternative to diagnostic chest CT. RADIATION DOSE: CT dose index volume (CTDIvol) = 3.16 mGy COMPARISON: 02/20/2019 FINDINGS: SMOKING RELATED LUNG DISEASE: There is a background of mild pulmonary emphysema, stable compared to the prior examination. LUNG NODULES: There are a few scattered 1-2 mm bilateral pulmonary nodules, for instance 2 mm nodule in the posterolateral right upper lobe on image 91 which is stable. There is no new suspicious pulmonary nodularity demonstrated within either lung. 2 mm left upper lobe nodule image 36, stable. OTHER: There is some scarring in the inferior aspect of the left upper lobe, which has not changed in configuration dating back to 2019. There is no pneumonic consolidation. There is no effusion or pneumothorax. There is mild bronchial wall thickening. The central airways are patent. There is no mediastinal or hilar adenopathy. The esophagus is unremarkable. The heart is normal in size. There are coronary artery calcifications. No pericardial effusion. Atherosclerotic changes of the thoracic aorta without aneurysm. There is no axillary adenopathy. The chest wall is unremarkable in appearance. The visualized upper abdomen reveals granulomatous calcifications of the spleen. There is mild undulation of the hepatic surface contour, stable from prior examination. There is thoracic spondylosis. No destructive osseous lesion. THIS IS AN ELECTRONICALLY VERIFIED FINAL REPORT 08/17/2021 12:32 PM - Electronically signed by Jane Ruiz M.D. TB: TB Report ID: [id number] Reading Location: [facility] Procedure Note Jane Ruiz MD - 08/17/2021 EXAM DESCRIPTION: CT CHEST SCREENING WO REASON FOR STUDY: Screening CT of the chest in a current smoker with a 48.5 pack year smoking history. Additional history: None. TECHNIQUE: Low dose CT scan of the chest was performed without intravenous contrast using helical scanning technique. The exam extends from the lung apices through the lung bases. Automatic exposure control was used as a dose optimization technique. NOTE: This study was performed for the specific purposes of lung cancer screening and is not an alternative to diagnostic chest CT. RADIATION DOSE: CT dose index volume (CTDIvol) = 3.16 mGy COMPARISON: 02/20/2019 FINDINGS: SMOKING RELATED LUNG DISEASE: There is a background of mild pulmonary emphysema, stable compared to the prior examination. LUNG NODULES: There are a few scattered 1-2 mm bilateral pulmonary nodules, for instance 2 mm nodule in the posterolateral right upper lobe on image 91 which is stable. There is no new suspicious pulmonary nodularity demonstrated within either lung. 2 mm left upper lobe nodule image 36, stable. OTHER: There is some scarring in the inferior aspect of the left upper lobe, which has not changed in configuration dating back to 2019. There is no pneumonic consolidation. There is no effusion or pneumothorax. There is mild bronchial wall thickening. The central airways are patent. There is no mediastinal or hilar adenopathy. The esophagus is unremarkable. The heart is normal in size. There are coronary artery calcifications. No pericardial effusion. Atherosclerotic changes of the thoracic aorta without aneurysm. There is no axillary adenopathy. The chest wall is unremarkable in appearance. The visualized upper abdomen reveals granulomatous calcifications of the spleen. There is mild undulation of the hepatic surface contour, stable from prior examination. There is thoracic spondylosis. No destructive osseous lesion. THIS IS AN ELECTRONICALLY VERIFIED FINAL REPORT 08/17/2021 12:32 PM - Electronically signed by Jane Ruiz M.D. TB: TB Report ID: [id number] Reading Location: [facility] IMPRESSION: 1. Background of mild pulmonary emphysema, stable. 2. No new suspicious pulmonary nodularity. Scattered erika metric pulmonary nodules are stable. 3. Additional findings as above. Lung-RADS v1.1 category 2: Benign appearance or behavior. Recommendation: Continue annual screening low-dose chest CT in 12 months. us Hunter Perez MD [facility] CT ORDERABLES Final R esult * PSA FREE & TOTAL (02/11/2019 10:29 AM CDT) Prostatic Specific Antigen, Free 0.20 ng/mL 02/12/2019 12:[address] [facility] PSA, TOTAL (PROSTATIC SPECIFIC ANTIGEN) 0.53 <4.00 ng/mL 02/12/2019 12:[address] [facility] PSA, % FREE 37.7 % 02/12/2019 12:[address] [facility] Comment: PSA NG/ML FREE PSA % EST PROB CANCER % 2.6- 4.0 0-27 24 4.1-10.0 0-10 56 11-15 28 16-20 20 21-25 16 >25 8 THESE ESTIMATES VARY WITH AGE, ETHNICITY, FAMILY HISTORY AND NEW RESULTS. THE DIAGNOSTIC USEFULNESS OF % FREE PSA HAS NOT BEEN ESTABLISHED IN PATIENTS WITH TOTAL PSA BELOW 2.6 NG/ML. IN MEN WITH A PSA LEVEL ABOVE 10 NG/ML, PROSTATE CANCER RISK IS DETERMINED BY TOTAL PSA ALONE. Blood specimen (specimen) Venipuncture / Unknown 02/11/2019 10:29 AM CDT 02/11/2019 10:29 AM CDT us Nina Mendiola APRN, CNP CHEMISTRY ORDERABLES Fi nal Result [facility] [address] [place] [address], * Stool, Occult Blood, Diagnostic (02/01/2019 1:00 PM CDT) OCCULT BLOOD DIAG, GI BLEED Negative Negative 02/01/2019 1:36 PM CDT [facility] Stool specimen (specimen) STOOL SPECIMEN / Unknown Non-Phlebotomy Collection / Unknown 02/01/2019 1:00 PM CDT 02/01/2019 1:15 PM CDT Steven Shah PAC BODY FLUIDS & STOOLS ORDE JOCELYN Final Result Performing Organization Address City/[facility]/ZIP Co de Phone Number [facility] [address] [place] [address] from Last 3 Months or Most Recently Relevant to Health Maintenance Insurance MEDICARE C [employer] Advance Directives * Full Code (Latest Code Status on File) Date Activated Date Inactivated Comments 01/31/2019 3:15 PM 02/04/2019 5:19 PM CPR-Full Sherry tment: FULL ARREST: Attempt Resuscitation/CPR wit intubation and mechanical ventilation. PRE-ARREST: Use entire range of life support measures to stabilize the patient. Care Teams Cooling Machine Operator Relationship Specialty Start Date End Date Hunter Perez MD [address] [place] [address] PCP - General Internal Medicine 07/27/15 Kendra Garvin MD [address] [place] [address] Consulting Physician Pain Medicine-Pain Management 06/22/16 [place] [address] [address] Consulting Physician Neurology 06/22/16 Ralf Espinoza MD [address] [address] Consulting Physician Rheumatology 06/22/16
--- OUTSIDE RECORDS SUMMARY | 2025-02-05 12:12 | XMS_ITS | Clinical Summary ---
Author Organization [employer] [facility] [place] [employer] Address [address] [place] [address] Care Team Providers Care Bullion Weigher Name Role Phone Ralf Espinoza MD Unavailable Unavailable Source Comments [facility],non-owned Affiliates and Associated Physician Practices is amultiple site organization consisting of ambulatory clinics and hospital sitesin [place], [place], [place] and [place]. This disclosure is being madepursuant to the Care Everywhere program and may not contain all information available regarding this patient. Last updated 18.[facility] Allergies No known active allergies Medications * Be aware that medications may not be up to date on this document. Alwaysverify current medications with the patient. Medication Sig Dispensed Refills Start Date End Date Status ezetimibe (ZETIA) 10 MG tablet Take 10 mg by mouth daily. Active DULoxetine (CYMBALTA) 60 MG capsule Take 60 mg by mouth daily. Active buPROPion SR 12hr (WELLBUTRIN-SR) 150 MG tablet Take 150 mg by mouth 2 times daily. Active tiotropium (SPIRIVA HANDIHALER) 18 MCG inhalation capsule Inhale 1 Cap by mouth daily. Active budesonide-formoter ol (SYMBICORT) 160-4.5 MCG/ACT inhaler Inhale 2 Puffs by mouth 2 times daily. Active zolpidem (AMBIEN) 10 MG tablet Take 10 mg by mouth nightly as needed. Active Potassium Gluconate 595 MG TABS Take by mouth. Active Multiple Vitamin (MULTI-VITAMIN) TABS Take by mouth daily. Acti ve fish oil/omega-3 fatty acids (FISH OIL) 1000 MG capsule Take 1,000 mg by mouth 3 times daily with meals. Active cranberry fruit 475 MG CAPS capsule Take by mouth 2 times daily. Active Cyanocobalamin (B-12) 1000 MCG TBCR Take by mouth. Active Calcium Carbonate-Vitamin D (CALCIUM 600 + D PO) Take by mouth daily. Acti ve acetaminophen (TYLENOL) 500 MG tabletIndications:F ibromyalgia Take 2 Tabs by mouth 3 times daily. Maximum allowable Acetaminophen amount = 4 Grams / 24 hours. 02/15/2011 Active gabapentin (NEURONTIN) 300 MG capsuleIndications: Insomnia Take 2 Caps by mouth 2 times daily. 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 1 Tab 2 times daily 180 Tab 3 08/18/2015 Active omeprazole EC (PRILOSEC OTC) 20 MG tablet Take 1 Tab by mouth 2 times daily 08/18/2015 Active Active Problems Problem Noted Date Diagnosed Date Carpal tunnel syndrome 05/02/2012 Overview (05/02/2012): 05/02/2012 NCS EMG wrist splints Encounter for long-term (current) use of NSAIDs 04/18/2011 Fibromyalgia 02/15/2011 Cervical spondylosis 02/15/2011 Insomnia 02/15/2011 Social History Tobacco Use Types Packs/Day Years Used Date Smoking Tobacco: Every Day Cigarettes Smokeless Tobacco: Never Alcohol Use Standard Drinks/Week Comments Yes 0 (1 standard drink = 0.6 oz pur e alcohol) occ Sex and Gender Information Value Date Recorded Sex Assigned at Not on file Gender Identity Not on file Sexual Orientation Not on file Last Filed Vital Signs Vital Sign Reading Time Taken Comments Blood Pressure 120/76 08/18/2015 3:25 PM CDT Pulse 76 08/18/2015 3:25 PM CDT Temperature - - Respiratory Rate - - Oxygen Saturation - - Inhaled Oxygen Concentration - - Weight 79.3 kg (174 lb 12.8 oz) 08/18/2015 3:25 PM CDT Height 172.7 cm (5' 8 ) 08/18/2015 3:25 PM CDT Body Mass Index 26.58 08/18/2015 3:25 PM CDT Plan of Treatment Health Maintenance Due Date Last Done Comments COLOGUARD (AGES 45-75) - COL ON CA SCREENING 1955 COLON MONITORING 1955 COLONOSCOPY - COLON CA SCREENING 1955 CT COLONOGRAPHY - COLON CA SCREENING 1955 Colorectal Cancer Screening 1955 FIT - COLON CA SCREENING 1955 FLEX SIG - COLON CA SCREENING 1955 LIPID TESTING 1955 MEDICARE AWV 12 MONTHS 1955 HEPATITIS C SCREENING 06/18/1973 DTAP/TDAP/TD VACCINES (1 - Tdap) 1974 PNEUMOCOCCAL VACCINE 50+ (1 of 1 - PCV) 2005 ZOSTER VACCINE (1 of 2) 2005 AAA SCREENING 2020 COVID-19 VACCINE (1 - 2023-2 5 season) 2024 DEPRESSION SCREENING 11/05/2024 INFLUENZA VACCINE (Season Ended) 2025 10/08/2015, 11/05/2013 Respiratory Syncytial Virus (RSV) Vaccine Pt: or over 60 yrs (1 - 1-dose 75+ series) 2030 HEPATITIS B VACCINE Aged Out No longe r eligible based on patient's age to complete this topic HIB VACCINE Aged Out No longer eligi ble based on patient's age to complete this topic HPV VACCINE Aged Out No longer eligi ble based on patient's age to complete this topic MENINGOCOCCAL (Group B) VACCINE SHARED DECISION-MAKING Aged Out No longer eligible based on patient's age to complete this topic MENINGOCOCCAL GROUPS A/C/Y/W VACCINE Aged Out No longer eligible b ased on patient's age to complete this topic Care Teams Bullion Weigher Relationship Specialty Start Date End Date Ralf Espinoza MD Rheumatology 10/16/11
[2025-02-05 12:30] LABS: Alanine Aminotransferase 36 U/L (16-63); Albumin Level 3.9 g/dL (3.4-5.0); Alkaline Phosphatase 88 U/L (46-116); Anion Gap 7 mmol/L (4-12); Aspartate Amino Transferase 23 U/L (15-37); Bilirubin,Total 0.4 mg/dL (0.00-1.00); Blood Urea Nitrogen 14 mg/dL (7-18); Calcium 9.1 mg/dL (8.5-10.1); Carbon Dioxide 32 mmol/L (21-32); Chloride 104 mmol/L (98-108); Estimated Glomerular Filt Rate > 60; Glucose 105 mg/dL (70-99); Osmolality Calculated 296 mOsm/kg (285-295); Potassium 4.9 mmol/L (3.5-5.1); Sodium 143 mmol/L (136-145)
[2025-02-05 12:32] LABS: CRP < 0.5 mg/dL (0.0-0.9)
== END 2025-02-05 11:19 | disposition home or self-care (01) ==
LOC: CHSLAB 11:21
PROVIDERS: PCP Internal Medicine; Visit Provider Nurse Practitioner
DX: L40.59 Other psoriatic arthropathy (principal); L40.50 Arthropathic psoriasis, unspecified
CPT/HCPCS: 36415; 80053; 85025; 86140